=== PATIENT | female | born 1950 | race Caucasian/White ===

== ENCOUNTER → 2017-02-11 | Outpatient (CLI) | payer OTHER ==
--- NOTE | ~2017-02-11 | EKG ---
[address] [address] ELECTROCARDIOGRAM REPORT Name: ZENON REED Room #: [facility]#: [id number] Admission: 02/11/17 Attend Phys: Julia Rebollar MD Discharge: Date of : 54 Report #: [id number] THIS REPORT FOR: //name// [facility] Test Date: 2017-02-11 Test Time: 15:00:31 Pat Name: ZENON REED Department: Room: Gender: F [employer] Reader: Marisol CHRISTINA : 1950 Requested By: Julia Rebollar Order Number: [id number] MD: Herrera Rosas Measurements Intervals [place] Rate: 87 P: 46 [place]: 120 QRS: 10 QRSD: 87 T: 226 QT: 411 QTc: 495 Interpretive Statements Sinus rhythm Occasional premature ventricular and supraventricular complexes Borderline prolonged QT interval Compared to ECG 12/16/2007 06:54:55 Ventricular and atrial premature complex(es) now present nonspecific change in the ST and T-wave segments Electronically Signed On 02-12-2017 7:20:11 CDT by Herrera Rosas [email or web address] <ELECTRONICALLY SIGNED> By: Herrera Rosas MD, [facility] 02/12/17 0720 1500 1500 Herrera Rosas MD, [facility] /EPI
== END ==
LOC: CV 14:40
DX: Z01.818 Encounter for other preprocedural examination (principal)

== ENCOUNTER → 2017-03-27 | Outpatient (CLI) | payer OTHER ==
[~2017-03-27] MED LIST: ASPIR-LOW81 MG PO; BACTRIM DS TAB1 EACH PO; DEXEDRINE10 MG PO; DEXEDRINE5 M1 PO; DIPHENHIST50 MG PO; IBUPROFEN 400400 M2 PO; LATISSE5 ML TP; OSPHENA60 MG PO; PIROXICAM20 MG PO; PROBIOTIC1 EAC1 PO; TURMERIC500 M1 PO; XANAX 0.5 MG0.5 MG PO
[2017-03-27 16:59] VITALS: BP 130/78
== END ==
LOC: OPONC 06:53
DX: S91.102D Unspecified open wound of left great toe without damage to nail, subsequent encounter (principal)
CPT/HCPCS: 27001; 95000